=== PATIENT | male | born 1955 | race Caucasian/White ===

== ENCOUNTER 2017-12-23 13:13 | Emergency (ER) | payer SELFPAY ==
[~2017-12-23] VITALS: Ht 172.7 cm; Wt 77.1 kg
[2017-12-23] MEDS ORDERED: CEPHALEXIN500 M1 PO (15:29)
== END 2017-12-23 15:43 | disposition home or self-care (01) ==
LOC: ED 13:13
DX: S41.111A Laceration without foreign body of right upper arm, initial encounter (principal); F17.200 Nicotine dependence, unspecified, uncomplicated; Z23 Encounter for immunization; W45.8XXA Other foreign body or object entering through skin, initial encounter; Y93.89 Activity, other specified; Y92.89 Other specified places as the place of occurrence of the external cause; Y99.8 Other external cause status

== ENCOUNTER → 2017-12-31 | Outpatient (CLI) | payer MEDICAID ==
[~2017-12-31] MED LIST: CEPHALEXIN500 M1 PO
== END | disposition home or self-care (01) ==
LOC: WOUNDCARE 01:36
DX: S51.811A Laceration without foreign body of right forearm, initial encounter (principal); S51.802A Unspecified open wound of left forearm, initial encounter; I10 Essential (primary) hypertension; F17.200 Nicotine dependence, unspecified, uncomplicated; W22.03XA Walked into furniture, initial encounter; X58.XXXA Exposure to other specified factors, initial encounter; Y93.89 Activity, other specified; Y92.89 Other specified places as the place of occurrence of the external cause; Y99.8 Other external cause status

== ENCOUNTER → 2018-01-01 | Outpatient (CLI) | payer MEDICAID | END | disposition home or self-care (01) | LOC: RAD 12:06 | DX: I51.7 Cardiomegaly (principal); I10 Essential (primary) hypertension; Z72.0 Tobacco use ==

== ENCOUNTER 2018-03-03 18:14 | Emergency (ER) | payer OTHER ==
[~2018-03-03] VITALS: Ht 172.7 cm; Wt 81.6 kg
[2018-03-03] MEDS ORDERED: LISINOPRIL20 MG PO (18:45)
[2018-03-03 18:59] LABS: BASO % 0.5 % (0.0-1.0); EOS # 0.2 10*3/uL (0.0-0.4); EOS % 1.7 % (1.0-4.0); HEMATOCRIT 49.8 % (42.0-52.0); HEMOGLOBIN 17.1 g/dl (14.0-18.0); LYMPH # 1.7 10*3/uL (1.3-4.4); LYMPH % 19.5 % (27.0-41.0); MEAN CELL VOLUME 92.9 fl (80.0-94.0); MEAN CORPUSCULAR HGB 31.9 pg (27.0-31.0); MEAN CORPUSCULAR HGB CONC 34.3 g/dl (33.0-37.0); MEAN PLATELET VOLUME 9.3 fl (9.6-12.3); MONO # 0.7 10*3/uL (0.1-1.0); NEUT % 69.7 % (47.0-73.0); PLATELET COUNT AUTOMATED 153 10*3/uL (130-400); RED BLOOD COUNT 5.36 10*6/uL (4.50-5.90); RED CELL DISTRI WIDTH 12.6 % (0-14.5); WHITE BLOOD COUNT 8.6 10*3/uL (4.8-10.8)
[2018-03-03 19:17] LABS: ALBUMIN 3.6 gm/dl (3.1-4.5); ALKALINE PHOSPHATASE 74 U/L (45-117); BUN 13 mg/dl (7-24); CHLORIDE 103 mmol/L (98-107); CREATININE 1.01 mg/dL (0.70-1.30); SGOT/AST 21 IU/L (3-35); SGPT/ALT 28 U/L (12-78); SODIUM 140 mmol/L (136-145)
[2018-03-03 19:22] LABS: TROPONIN I < 0.015 ng/ml (<0.045)
[2018-03-03] MEDS ORDERED: ZANTAC 150150 MG PO (20:26)
[2018-03-03] MEDS ORDERED: ZOFRAN4 MG PO (20:26)
[2018-03-03] MEDS ORDERED: SUNMARK OMEPRAZ20 M1 PO (20:26)
== END 2018-03-03 20:39 | disposition left against medical advice (07) ==
LOC: ED 18:14
PROVIDERS: Nurse Practitioner Family
DX: K29.80 Duodenitis without bleeding (principal); I10 Essential (primary) hypertension; Z79.899 Other long term (current) drug therapy

== ENCOUNTER 2018-04-25 12:24 | Emergency (ER) | payer OTHER ==
[~2018-04-25] VITALS: Ht 172.7 cm; Wt 81.6 kg
[~2018-04-25 12:24] MED LIST changes: +LISINOPRIL20 MG PO; +SUNMARK OMEPRAZ20 M1 PO; +ZANTAC 150150 MG PO; +ZOFRAN4 MG PO
[2018-04-25] MEDS ORDERED: CHLORZOXAZONE500 M2 PO (13:04)
[2018-04-25] MEDS ORDERED: NAPROSYN500 MG PO (13:04)
== END 2018-04-25 13:53 | disposition home or self-care (01) ==
LOC: ED 12:24
DX: S46.312A Strain of muscle, fascia and tendon of triceps, left arm, initial encounter (principal); R03.0 Elevated blood-pressure reading, without diagnosis of hypertension; Z79.899 Other long term (current) drug therapy; X58.XXXA Exposure to other specified factors, initial encounter; Y93.89 Activity, other specified; Y92.89 Other specified places as the place of occurrence of the external cause; Y99.8 Other external cause status

== ENCOUNTER 2020-12-12 08:43 | Emergency (ER) | payer OTHER ==
[~2020-12-12] VITALS: Wt 83.9 kg
[~2020-12-12 08:43] MED LIST changes: +CHLORZOXAZONE500 M2 PO; +NAPROSYN500 MG PO
[2020-12-12] MEDS ORDERED: CARTIA XT240 MG PO (09:12)
[2020-12-12 10:16] LABS: BASO % 0.4 % (0.0-1.0); EOS # 0.1 10*3/uL (0.0-0.4); EOS % 1.5 % (1.0-4.0); LYMPH # 1.5 10*3/uL (1.3-4.4); LYMPH % 20.5 % (27.0-41.0); MEAN CELL VOLUME 97.8 fl (80.0-94.0); MEAN CORPUSCULAR HGB 34.1 pg (27.0-31.0); MEAN CORPUSCULAR HGB CONC 34.9 g/dl (33.0-37.0); MEAN PLATELET VOLUME 9.8 fl (9.6-12.3); MONO # 0.8 10*3/uL (0.1-1.0); MONO % 10.7 % (3.0-9.0); NEUT # 4.8 10*3/uL (2.3-7.9); NEUT % 66.2 % (47.0-73.0); PLATELET COUNT AUTOMATED 166 10*3/uL (130-400); RED BLOOD COUNT 5.01 10*6/uL (4.50-5.90); RED CELL DISTRI WIDTH 12.2 % (0-14.5); WHITE BLOOD COUNT 7.3 10*3/uL (4.8-10.8)
[2020-12-12 10:24] LABS: ALBUMIN 3.3 gm/dl (3.1-4.5); ALKALINE PHOSPHATASE 99 U/L (45-117); BUN 9 mg/dl (7-24); CHLORIDE 107 mmol/L (98-107); CREATININE 1.08 mg/dL (0.70-1.30); LIPASE 546 U/L (73-393); POTASSIUM 3.9 mmol/L (3.5-5.1); SGOT/AST 80 IU/L (3-35); SGPT/ALT 93 U/L (12-78); SODIUM 138 mmol/L (136-145); TOTAL PROTEIN 7.1 gm/dL (6.4-8.2)
[2020-12-12 10:30] LABS: TROPONIN I < 0.015 ng/ml (<0.045)
== END 2020-12-12 15:00 | disposition left against medical advice (07) ==
LOC: ED 08:43
PROVIDERS: Physician Assistant
DX: R10.9 Unspecified abdominal pain (principal); R07.9 Chest pain, unspecified; I10 Essential (primary) hypertension; F17.200 Nicotine dependence, unspecified, uncomplicated; Z79.899 Other long term (current) drug therapy; Z53.29 Procedure and treatment not carried out because of patient's decision for other reasons

== ENCOUNTER 2022-06-23 08:16 | Emergency (ER) | payer OTHER ==
[~2022-06-23] VITALS: Ht 172.7 cm; Wt 77.1 kg
[~2022-06-23 08:16] MED LIST changes: +CARTIA XT240 MG PO
[2022-06-23 09:29] LABS: BASO % 0.4 % (0.0-1.0); EOS # 0.1 10*3/uL (0.0-0.4); EOS % 0.8 % (1.0-4.0); HEMATOCRIT 53.3 % (42.0-52.0); LYMPH # 1.4 10*3/uL (1.3-4.4); LYMPH % 18.2 % (27.0-41.0); MEAN CELL VOLUME 97.8 fl (80.0-94.0); MEAN CORPUSCULAR HGB 33.8 pg (27.0-31.0); MEAN CORPUSCULAR HGB CONC 34.5 g/dl (33.0-37.0); MEAN PLATELET VOLUME 9.2 fl (9.6-12.3); MONO % 13.4 % (3.0-9.0); NEUT # 4.9 10*3/uL (2.3-7.9); NEUT % 66.7 % (47.0-73.0); PLATELET COUNT AUTOMATED 165 10*3/uL (130-400); RED BLOOD COUNT 5.45 10*6/uL (4.50-5.90); WHITE BLOOD COUNT 7.4 10*3/uL (4.8-10.8)
[2022-06-23 09:44] LABS: ALKALINE PHOSPHATASE 90 U/L (45-117); BUN 7 mg/dl (7-24); CHLORIDE 104 mmol/L (98-107); CREATININE 1.03 mg/dL (0.70-1.30); POTASSIUM 4.1 mmol/L (3.5-5.1); SGOT/AST 32 IU/L (3-35); SGPT/ALT 40 U/L (12-78); SODIUM 136 mmol/L (136-145); TOTAL PROTEIN 7.9 gm/dL (6.4-8.2); URIC ACID 6.4 mg/dL (3.5-7.2)
[2022-06-23] MEDS ORDERED: CEPHALEXIN500 M1 PO (10:36)
[2022-06-23] MEDS ORDERED: NAPROXEN250 MG PO (10:36)
[2022-06-23] MEDS ORDERED: TYLENOL325 M1 PO (10:36)
== END 2022-06-23 10:40 | disposition home or self-care (01) ==
LOC: ED 08:16
PROVIDERS: Emergency Medicine
DX: L03.115 Cellulitis of right lower limb (principal); I10 Essential (primary) hypertension; D75.1 Secondary polycythemia; F17.210 Nicotine dependence, cigarettes, uncomplicated; Z79.899 Other long term (current) drug therapy